=== PATIENT | female | born 1965 | race Caucasian/White ===

== ENCOUNTER 2017-03-28 17:42 | Observation (INO) | payer OTHER ==
[~2017-03-28] VITALS: Ht 162.6 cm; Wt 56.7 kg
--- NOTE | 2017-03-28 18:39 | Diagnostic Imaging Report ---
Exam: Head CT without contrast History: Fall, hypertension Comparison studies: None Technique: Axial images were obtained from the skull base to the vertex. Coronal and sagittal images reconstructed from the axial data. Intravenous contrast: None Findings: Scalp: No abnormalities. Bones: No fractures, blastic or lytic lesions. Brain sulci: Appropriate for age. Ventricles: Normal in size and configuration. No hydrocephalus. Extra-axial spaces: No masses, no fluid collection. Parenchyma: No abnormal densities. No masses, acute hemorrhage, acute or chronic vascular insults. Sellar/suprasellar region: No abnormalities. Craniocervical junction: Patent foramen magnum. No Chiari one malformation. Incidental findings: Atherosclerotic calcifications in the carotid siphons. Nonspecific scattered inflammatory mucosal thickening in the included paranasal sinuses. IMPRESSION: No acute abnormalities. Signed by: Dr. Vince Tabor M.D. on 03/28/2017 6:35 PM
[2017-03-29 01:54] LABS: BASOPHILS % 0.3 % (0.0-1.0); EOSINOPHILS # (AUTO) 0.1 (0.0-0.4); EOSINOPHILS % 3.3 % (0.0-6.0); HEMATOCRIT 35.3 % (34.2-44.1); HEMOGLOBIN 12.1 g/dL (12.0-16.0); LYMPHOCYTES # (AUTO) 1.9 (1.0-3.2); MEAN CORPUSCULAR HEMOGLOBIN 30.6 pg (28-32); MEAN CORPUSCULAR HGB CONC 34.3 g/dL (31-35); MEAN CORPUSCULAR VOLUME 89.4 fL (81-99); MONOCYTES # (AUTO) 0.4 (0.2-0.8); MONOCYTES % 11.9 % (4.4-11.3); NEUTROPHILS # (AUTO) 0.9 (2.1-6.9); NEUTROPHILS % 27.5 % (38.7-80.0); PLATELET COUNT 178 x10e3/uL (140-360); RED BLOOD COUNT 3.95 x10e6/uL (3.6-5.1); RED CELL DISTRIBUTION WIDTH 11.9 % (11.7-14.4)
[2017-03-29 02:13] LABS: ALANINE AMINOTRANSFERASE 30 IU/L (0-55); ALBUMIN 3.4 g/dL (3.5-5.0); ALBUMIN/GLOBULIN RATIO 1.1 (0.8-2.0); ALKALINE PHOSPHATASE 63 IU/L (40-150); ANION GAP 11.9 mmol/L (8-16); BLOOD UREA NITROGEN 10 mg/dL (7-26); BUN/CREATININE RATIO 15 (6-25); CARBON DIOXIDE 29 mmol/L (22-29); CHLORIDE 104 mmol/L (98-107); CREATININE, SERUM 0.66 mg/dL (0.57-1.11); EST GLOMERULAR FILTRATION RATE > 60 ML/MIN (60-); GLUCOSE 174 mg/dL (74-118); POTASSIUM 3.9 mmol/L (3.5-5.1); SODIUM 141 mmol/L (136-145)
[2017-03-29] MEDS ORDERED: ADDERALL 20 MG20 MG PO (02:21)
[2017-03-29] MEDS ORDERED: KLONOPIN0.5 MG PO (02:21)
[2017-03-29] MEDS ORDERED: ZYRTEC-D TABLE1 EACH PO (02:21)
[2017-03-29] MEDS ORDERED: ASPIRIN 81 MG CHEW TAB PO ONE (03:00)
[2017-03-29 03:05] LABS: BILIRUBIN,URINE NEGATIVE (NEGATIVE); KETONES,URINE NEGATIVE (NEGATIVE); LEUKOCYTE ESTERASE ,URINE 1+ (NEGATIVE); NITRITE,URINE NEGATIVE (NEGATIVE); PROTEIN,URINE DIPSTICK NEGATIVE (NEGATIVE); URINE UROBILINOGEN 0.2 mg/dL (0.2 - 1)
[2017-03-29 03:07] LABS: CLARITY,URINE CLOUDY (CLEAR); COLOR,URINE YELLOW (YELLOW)
[2017-03-29 03:08] LABS: INR 0.86; PROTHROMBIN TIME 12.2 seconds (11.9-14.5)
[2017-03-29 03:09] LABS: PARTIAL THROMBOPLASTIN TIME 28.3 seconds (23.8-35.5)
[2017-03-29 03:17] LABS: CREATINE KINASE 54 IU/L (29-168); MAGNESIUM 2.2 MG/DL (1.3-2.1)
[2017-03-29 03:19] LABS: BACTERIA,URINE MODERATE /HPF; EPITHELIAL CELLS,URINE RARE /LPF; RBC,URINE 0-5 /HPF (0-5); WBC,URINE (MAN) 21-50 /HPF (0-5)
[2017-03-29 03:23] LABS: TROPONIN I < 0.001 ng/mL (0-0.300)
--- NOTE | 2017-03-29 03:37 | Diagnostic Imaging Report ---
EXAMINATION: CHEST SINGLE (PORTABLE) INDICATION: Syncope COMPARISON: None FINDINGS: TUBES and LINES: None. LUNGS: Lungs are well inflated. Lungs are clear. There is no evidence of pneumonia or pulmonary edema. PLEURA: No pleural effusion or pneumothorax. HEART AND MEDIASTINUM: The cardiomediastinal silhouette is unremarkable. BONES AND SOFT TISSUES: No acute osseous lesion. Soft tissues are unremarkable. UPPER ABDOMEN: No free air under the diaphragm. IMPRESSION: No acute thoracic abnormality. Signed by: Dr. Roberto Roger M.D. on 03/29/2017 3:33 AM
[2017-03-29] MEDS ORDERED: SODIUM CHLORIDE 0.9% 1000ML 1,000 ML IV STA (03:50)
--- NOTE | 2017-03-29 05:51 | Diagnostic Imaging Report ---
EXAM: CT Chest WITH contrast 03/29/2017 3:50 AM INDICATION: Pulmonary embolism, shortness of breath COMPARISON: None TECHNIQUE: Chest was scanned utilizing a multidetector helical scanner from the lung apex through the level of the adrenal glands without administration of IV contrast. Coronal and sagittal reformations were obtained. Routine protocol was performed. IV CONTRAST: 100 and mL of Isovue-370 RADIATION DOSE: Total DLP: 454.65 mGy*cm Estimated effective dose: (DLP x 0.014 x size factor) mSv COMPLICATIONS: None FINDINGS: LINES/ TUBES: None. LUNGS AND AIRWAYS: The lungs are unremarkable. Airways are normal. PLEURA: The pleural spaces are clear. HEART AND MEDIASTINUM: The thyroid gland is normal. No mediastinal, hilar or axillary lymphadenopathy. The heart is normal in size.. There is no pericardial effusion. There are mild atherosclerotic calcifications in the aorta and coronary arteries. The pulmonary artery measures 2.2 cm in diameter. UPPER ABDOMEN: Postsurgical changes in the stomach suggestive of bariatric procedure BONES: The visualized bony thorax is within normal limits. SOFT TISSUES: Unremarkable. IMPRESSION: No evidence of pulmonary embolism. No acute intrathoracic abnormality. Signed by: Dr. Roberto Roger M.D. on 03/29/2017 5:48 AM
[2017-03-29] MEDS ORDERED: CEFTRIAXONE SOD 1 GM VIAL IV SCH (06:00)
[2017-03-29] MEDS ORDERED: FAMOTIDINE 20 MG/2 ML VIAL IV SCH (06:30)
[2017-03-29] MEDS ORDERED: ONDANSETRON HCL INJ 2 MG/ML VIAL IV PRN (06:30)
[2017-03-29] MEDS ORDERED: IOPAMIDOL 370 MG/ML 200 ML INFUS..BTL INJ ONE (07:10)
[2017-03-29] MEDS ORDERED: SODIUM CHLORIDE 0.9% 50ML 50 ML ONE (07:10)
[2017-03-29] MEDS ORDERED: CLONAZEPAM 0.5 MG TAB PO PRN (08:00)
[2017-03-29] MEDS ORDERED: FAMOTIDINE 20 MG TAB PO SCH (08:00)
[2017-03-29 08:19] LABS: AMPHETAMINES SCREEN,URINE NEGATIVE (NEGATIVE); BENZODIAZEPINES SCREEN,URINE NEGATIVE (NEGATIVE); CANNABINOIDS SCREEN,URINE NEGATIVE (NEGATIVE); PHENCYCLIDINE SCREEN,URINE NEGATIVE (NEGATIVE)
[2017-03-29] MEDS ORDERED: ASPIRIN 81 MG ENTERIC COATED PO SCH (09:00)
[2017-03-29 10:47] LABS: CREATINE KINASE MB 0.4 ng/mL (0.00-5.00); TROPONIN I 0.004 ng/mL (0-0.300)
[2017-03-29 10:51] VITALS: BP 154/97
== END 2017-03-29 14:20 | disposition left against medical advice (07) ==
LOC: ER 17:42 → ERHOLD 03-29 06:47 → IMCU 03-29 10:52
PROVIDERS: ADMIT Internal Medicine; ATTEND Internal Medicine
DX: R55 Syncope and collapse (principal); R00.1 Bradycardia, unspecified; R00.2 Palpitations; N39.0 Urinary tract infection, site not specified
CPT/HCPCS: 36415; 70450; 71010; 71260; 80053; 80307; 81001; 82550; 82553; 83735; 84443; 84484; 85025; 85379; 85610; 85730; 87086; 87400; 93005; 93306; 93880; 99285; G0378; J0696; J7030; Q9967